=== PATIENT | female | born 2000 | race African-American/Black ===

== ENCOUNTER 2018-03-21 21:58 | Emergency (ER) | payer OTHER ==
[~2018-03-21] VITALS: Ht 162.6 cm; Wt 58.1 kg
[2018-03-21 22:44] LABS: APPEARANCE,URINE SLIGHTLY CLOUDY; BILIRUBIN, URINE NEGATIVE (NEGATIVE); COLOR,URINE RED; GLUCOSE, URINE (UA) NEGATIVE (NEGATIVE); KETONES,URINE 4+ (NEGATIVE); LEUKOCYTE ESTERASE ,URINE 2+ (NEGATIVE); NITRITE,URINE NEGATIVE (NEGATIVE); PH,URINE 5 (4.5-8.0); PROTEIN,URINE 4+ (NEGATIVE); UROBILINOGEN,URINE NORMAL MG/DL (0.0-1.0)
[2018-03-21 23:09] LABS: HEMATOCRIT 29.3 % (37.0-47.0); HEMOGLOBIN 8.8 G/DL (12.0-16.0); MEAN CORPUSCULAR VOLUME 71 FL (80-99); PLATELET COUNT 350 K/UL (150-450); RED BLOOD COUNT 4.15 M/UL (4.20-5.40); RED CELL DISTRIBUTION WIDTH 15.6 % (11.6-14.8); WHITE BLOOD COUNT 12.3 K/UL (4.8-10.8)
[2018-03-21] MEDS ORDERED: cefTRIAXone 1 GM in NS 55 ML IVPB ONE (23:15)
[2018-03-21] MEDS ORDERED: CEPHALEXIN500 MG ORAL (23:43)
[2018-03-21] MEDS ORDERED: NAPROXEN500 M1 ORAL (23:43)
--- NOTE | 2018-03-21 23:44 | Emergency Room Report ---
History of Present Illness General Chief Complaint: Abdominal Pain Source: Patient Present Illness HPI Is a 17-year-old female who has history anemia secondary to heavy menstrual bleeding. She presents with chief complaint of menstrual cramps and bleeding. Also with dysuria frequency that started today. Ibuprofen not helping. No nausea no vomiting. Nothing made it better. Urinating made it worse. Pain is 9 out of 10. She's not taking her iron because it makes her nauseous. Allergies: Coded Allergies: No Known Allergies (Unverified , 03/21/18) Patient History Past Medical History: see triage record, old chart reviewed Past Surgical History: other Pertinent Family History: none Social History: Denies: smoking Last Menstrual Period: today Now: No Immunizations: other Reviewed Nursing Documentation: PMH: Agreed; PSxH: Agreed Nursing Documentation-PMH Hx Cardiac Problems: No - ANEMIA Review of Systems Eye: Denies: eye pain, blurred vision ENT: Denies: ear pain, nose congestion, throat swelling Respiratory: Denies: cough, shortness of breath Cardiovascular: Denies: chest pain, palpitations Gastrointestinal: Denies: abdominal pain, diarrhea, nausea, vomiting Genitourinary: Reports: dysuria, frequency, vag bleed/dc Musculoskeletal: Denies: back pain, joint pain Skin: Denies: rash Neurological: Denies: headache, numbness Endocrine: Denies: increased thirst, increased urine Hematologic/Lymphatic: Denies: easy bruising All Other Systems: negative except mentioned in HPI Physical Exam Vital Signs Date Time Temp Pulse Resp B/P (MAP) Pulse Ox O2 Delivery O2 Flow Rate FiO2 03/21/18 22:07 100.1 82 18 100/62 100 Room Air 100.0 vitals with fever Sp02 EP Interpretation: reviewed, normal General Appearance: well appearing, no apparent distress, alert Head: normocephalic, atraumatic Eyes: bilateral eye PERRL, bilateral eye EOMI ENT: hearing grossly normal, normal pharynx Neck: full range of motion, supple, no meningismus Respiratory: chest non-tender, lungs clear, normal breath sounds Cardiovascular #1: regular rate, rhythm, no murmur Gastrointestinal: normal bowel sounds, non tender, no mass, no organomegaly, no bruit, non-distended Musculoskeletal: back normal, gait/station normal, normal range of motion Psychiatric: mood/affect normal Skin: warm/dry Medical Decision Making Diagnostic Impression: Primary Impression: UTI (urinary tract infection) Qualified Codes: N30.00 - Acute cystitis without hematuria Additional Impressions: Dysfunctional uterine bleeding Anemia Qualified Codes: D50.0 - Iron deficiency anemia secondary to blood loss ( chronic) ER Course Patient with UTI. No evidence of pyelonephritis. She is comfortable. We'll discharge home. Lab Results Impression labs with anemia Last Vital Signs Date Time Temp Pulse Resp B/P (MAP) Pulse Ox O2 Delivery O2 Flow Rate FiO2 03/21/18 22:07 100.1 82 18 100/62 100 Room Air 100.0 Status: improved Disposition: HOME, SELF-CARE Condition: Stable Scripts Naproxen* (NAPROXEN*) 500 Mg Tablet. 500 MG ORAL TWICE A DAY, #30 TAB Prov: DAVID MCGOVERN M.D. 03/21/18 Cephalexin* (KEFLEX*) 500 Mg Capsule 500 MG ORAL TID, #21 CAP Prov: DAVID MCGOVERN M.D. 03/21/18 Referrals: NON PHYSICIAN (PCP) Additional Instructions: Follow-up your doctor in 7 days. Take your iron supplement. Return if worse. Talk to your regarding control pill to regulate your cycle. DAVID MCGOVERN M.D. Mar 21, 2018 23:44
[2018-03-21 23:55] VITALS: BP 102/62
[2018-03-22] VITALS: BP 102/62
== END 2018-03-22 | disposition home or self-care (01) ==
LOC: EMR 22:46
DX: N39.0 Urinary tract infection, site not specified (principal); N93.8 Other specified abnormal uterine and vaginal bleeding; D64.9 Anemia, unspecified
CPT/HCPCS: 36415; 81003; 81025; 85025; 96365; 99284; J0696

== ENCOUNTER → 2018-11-10 | Emergency (ER) | payer OTHER ==
[~2018-11-10] MED LIST: CEPHALEXIN500 MG ORAL; Cephalexin 500mg cap ONE; NAPROXEN500 M1 ORAL
--- NOTE | 2018-11-11 06:39 | Emergency Room Report ---
History of Present Illness General Source: Patient Present Illness HPI This is a 18-year-old female with no past mental history. She presents with chief complaint of possible urinary tract infection. She has some dysuria. No frequency. Unknown hematuria because she is on her menstrual period right now. Similar symptom in the past. No trauma. No discharge. Allergies: Coded Allergies: No Known Allergies (Unverified , 03/21/18) Patient History Past Medical History: see triage record, old chart reviewed Past Surgical History: none Pertinent Family History: none Social History: Denies: smoking Now: No Immunizations: other Reviewed Nursing Documentation: PMH: Agreed; PSxH: Agreed Nursing Documentation-PMH Hx Cardiac Problems: No - ANEMIA Review of Systems Eye: Denies: eye pain, blurred vision ENT: Denies: ear pain, nose congestion, throat swelling Respiratory: Denies: cough, shortness of breath Cardiovascular: Denies: chest pain, palpitations Gastrointestinal: Denies: abdominal pain, diarrhea, nausea, vomiting Genitourinary: Reports: dysuria Musculoskeletal: Denies: back pain, joint pain Skin: Denies: rash Neurological: Denies: headache, numbness Endocrine: Denies: increased thirst, increased urine Hematologic/Lymphatic: Denies: easy bruising All Other Systems: negative except mentioned in HPI Physical Exam vitals normal Sp02 EP Interpretation: reviewed, normal General Appearance: well appearing, no apparent distress, alert Head: normocephalic, atraumatic Eyes: bilateral eye PERRL, bilateral eye EOMI ENT: hearing grossly normal, normal pharynx Neck: full range of motion, supple, no meningismus Respiratory: chest non-tender, lungs clear, normal breath sounds Cardiovascular #1: regular rate, rhythm, no murmur Gastrointestinal: normal bowel sounds, non tender, no mass, no organomegaly, no bruit, non-distended Musculoskeletal: back normal, gait/station normal, normal range of motion Psychiatric: mood/affect normal Skin: warm/dry Medical Decision Making Diagnostic Impression: Primary Impression: UTI (urinary tract infection) Qualified Codes: N30.00 - Acute cystitis without hematuria ER Course Patient with possible urinary tract infection. Urine cultures sent. We'll put on antibiotics. No evidence of a pyelonephritis. Not . Status: improved Disposition: HOME, SELF-CARE Condition: Stable Scripts Cephalexin* (KEFLEX*) 500 Mg Capsule 500 MG ORAL TID, #21 CAP Prov: Estuardo Oliveros MD 11/11/18 Referrals: [facility],REFERRING (PCP) Estuardo Oliveros MD Nov 11, 2018 06:39
== END | disposition home or self-care (01) ==
LOC: EMR 22:53
DX: N39.0 Urinary tract infection, site not specified (principal)
CPT/HCPCS: 99282

== ENCOUNTER 2019-04-18 20:04 | Emergency (ER) | payer OTHER ==
[~2019-04-18] VITALS: Ht 162.6 cm; Wt 59.4 kg
[~2019-04-18 20:04] MED LIST changes: -Cephalexin 500mg cap ONE
[2019-04-18 20:41] VITALS: BP 104/61
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
[2019-04-18] MEDS ORDERED: Acetaminophen 500mg (ES) tab ORAL ONE (21:15)
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
[2019-04-18] MEDS ORDERED: IBUPROFEN600 MG ORAL (22:09)
[2019-04-18] MEDS ORDERED: CYCLOBENZAPRINE10 MG ORAL (22:09)
[2019-04-18 22:21] VITALS: BP 104/61
--- NOTE | 2019-04-18 22:21 | NUR ---
ER Nurse Note: Pt signed waver for radiology. Pt seen, treated, medically cleared for discharge by ERMD. Discharge instuctions and prescriptions given with repeat verbalization by pt. Emphasized to follow up with primay care provider; take whole course of medication. Explained each medication. All orders completed per ERMD orders. Pt a&ox4, VSS, no signs of distress. ID band removed. All questions answered per pt's questions. Pt left with all belongings, left with own transportation.
--- NOTE | 2019-04-19 12:50 | Diagnostic Imaging Report ---
Indication: Back pain Comparison: None Findings: 3 views of the lumbar spine were obtained. No acute fracture or malalignment is identified. Vertebral body heights and disk spaces are well maintained. Posterior elements are unremarkable. Impression: No acute findings.
== END 2019-04-18 22:21 | disposition home or self-care (01) ==
LOC: EMR 20:48
DX: S39.012A Strain of muscle, fascia and tendon of lower back, initial encounter (principal); V43.62XA Car passenger injured in collision with other type car in traffic accident, initial encounter; Y92.410 Unspecified street and highway as the place of occurrence of the external cause
CPT/HCPCS: 72020; 99283

== ENCOUNTER 2019-06-21 15:37 | Emergency (ER) | payer OTHER ==
[~2019-06-21] VITALS: Ht 162.6 cm; Wt 52.2 kg
[~2019-06-21 15:37] MED LIST changes: +CYCLOBENZAPRINE10 MG ORAL; +IBUPROFEN600 MG ORAL
[2019-06-21 15:46] VITALS: BP 115/70
--- NOTE | 2019-06-21 15:56 | NUR ---
ED Nurse Note: PT FROM HOME CAME IN DUE TO VAGINAL SWELLING, PAIN WITH ITCHINESS AND BROWN DISCHARGE. AAO X4, AMBULATORY.
[2019-06-21] MEDS ORDERED: Fluconazole 150mg tab ORAL ONE (16:30)
[2019-06-21] MEDS ORDERED: FLUCONAZOLE100 MG ORAL (16:31)
--- NOTE | 2019-06-21 16:31 | Emergency Room Report ---
History of Present Illness General Chief Complaint: Vaginal Source: Patient Present Illness HPI 18-year-old female presents to the emergency department complaining of 9 out of 10 severity external vaginal itching and burning sensation with soft tissue swelling x4 days. Patient reports her symptoms have improved slightly after applying OTC Monistat for which she has run out on. Patient denies unprotected intercourse she denies swollen tender lymph nodes, vaginal lesions or pelvic pain. Patient denies suspicion of . She reports frequent yeast infections. Patient also is reporting some light brown-colored discharge x1 day. Patient states that she is always had very irregular periods and was at one point on control in an attempt to regulate her periods. Patient states that she is not sexually active with the opposite sex. She denies dysuria, urinary frequency or urgency. Patient denies hematuria. She denies malodor to the discharge. No other aggravating or relieving factors. Allergies: Coded Allergies: No Known Allergies (Unverified , 03/21/18) Patient History Past Medical History: see triage record Past Surgical History: none Pertinent Family History: none Last Menstrual Period: 06/06/19 Now: No Reviewed Nursing Documentation: PMH: Agreed; PSxH: Agreed Nursing Documentation-PMH Past Medical History: No Stated History Hx Cardiac Problems: No - ANEMIA Review of Systems All Other Systems: negative except mentioned in HPI Physical Exam Vital Signs Date Time Temp Pulse Resp B/P (MAP) Pulse Ox O2 Delivery O2 Flow Rate FiO2 06/21/19 15:46 98.6 60 16 115/70 (85) 100 Room Air Sp02 EP Interpretation: reviewed, normal General Appearance: no apparent distress, alert, GCS 15, non-toxic Head: normocephalic, atraumatic Eyes: bilateral eye normal inspection, bilateral eye PERRL ENT: hearing grossly normal, normal voice Neck: full range of motion Respiratory: lungs clear, normal breath sounds, speaking full sentences Cardiovascular #1: regular rate, rhythm Gastrointestinal: normal bowel sounds, non tender, soft Genitourinary: normal inspection, no CVA tenderness, adnexa normal, other - the external labia are erythematous and mild swelling, no warmth. Pt. has superficial tenderness. no obvious d/c noted. no LAD. no obvious lesions, deferred - pt. a virgin, modified exam to the superficial structures and vaginal orifice without use of the speculum. Musculoskeletal: back normal, gait/station normal, normal range of motion, non- tender Neurologic: alert, oriented x3, responsive, motor strength/tone normal, sensory intact, speech normal, grossly normal Psychiatric: judgement/insight normal Skin: rash - irritated macerated appearing erythematous rash to the bilateral vaginal labia. no blisters, vessicles, or lesions noted. no obvious D/c Noted. Lymphatic: no adenopathy Medical Decision Making PA Attestation Dr. Ruiz is my supervising Physician whom patient management has been discussed with. Diagnostic Impression: Primary Impression: Vaginitis and vulvovaginitis ER Course 18-year-old female presents to the emergency department complaining of 9 out of 10 severity external vaginal itching and burning sensation with soft tissue swelling x4 days. Patient reports her symptoms have improved slightly after applying OTC Monistat for which she has run out on. Patient denies unprotected intercourse she denies swollen tender lymph nodes, vaginal lesions or pelvic pain. Patient denies suspicion of . Pt. denies fevers or chills, blisters or skin abnormalities. She reports frequent yeast infections. Patient also is reporting some light brown-colored discharge x1 day. Patient states that she is always had very irregular periods and was at one point on control in an attempt to regulate her periods. Patient states that she is not sexually active with the opposite sex. She denies dysuria, urinary frequency or urgency. Patient denies hematuria. She denies malodor to the discharge. No other aggravating or relieving factors. Ddx considered but are not limited to UTi , Pyelo, STI, Stone, Cystitis, vaginal laceration, vaginitis. Vital signs: are WNL, pt. is afebrile H& PE are most consistent with: Vaginitis- yeast ORDERS: - Wet [place] : Pt. virgin- deferred.-collaborative decision. ED INTERVENTIONS: -Diflucan PO DISCHARGE: At this time pt. is stable for d/c to home. Will provide printed patient care instructions, and any necessary prescriptions. Care plan and follow up instructions have been discussed with the patient prior to discharge. discussed with the patient prior to discharge. Last Vital Signs Date Time Temp Pulse Resp B/P (MAP) Pulse Ox O2 Delivery O2 Flow Rate FiO2 06/21/19 15:46 98.6 60 16 115/70 100 Room Air Disposition: HOME, SELF-CARE Condition: Stable Scripts Fluconazole (FLUCONAZOLE) 100 Mg Tablet 100 MG ORAL DAILY for 2 Days, #2 TAB 0 Refills Prov: Chula Schwartz 06/21/19 Patient Instructions: Vaginitis, [id number] Additional Instructions: Take medications as directed. Follow up with a PCP or [facility] within 3 days, even if your symptoms have resolved. Return sooner to ED if new symptoms occur, or current symptoms become worse. - Please note that this Emergency Department Report was dictated using [employer] powerplant mechanic helper technology software, occasionally this can lead to erroneous entry secondary to interpretation by the dictation equipment. Chula Schwartz Jun 21, 2019 16:31
[2019-06-21 16:40] VITALS: BP 125/76
--- NOTE | 2019-06-21 16:40 | NUR ---
ER DISCHARGE NOTE: Patient is cleared to be discharged per PA, pt is aox4, on room air, with stable vital signs. pt was given dc and prescription instructions, pt was able to verbalize understanding, pt id band removed. pt is able to ambulate with steady gait. pt took all belongings and left with her family member.
== END 2019-06-21 16:40 | disposition home or self-care (01) ==
LOC: EMR 16:05
DX: N76.0 Acute vaginitis (principal)
CPT/HCPCS: 99282

== ENCOUNTER 2019-10-12 07:15 | Emergency (ER) | payer OTHER ==
[~2019-10-12] VITALS: Ht 162.6 cm; Wt 54.4 kg
[~2019-10-12 07:15] MED LIST changes: +FLUCONAZOLE100 MG ORAL
[2019-10-12] MEDS ORDERED: Ketorolac 60mg Inj IM ONE (07:45)
--- NOTE | 2019-10-12 07:49 | Emergency Room Report ---
History of Present Illness General Chief Complaint: Headache Source: Patient Present Illness HPI Patient presents with complaints of headache that is been ongoing for the past 7 days Patient reports that she has history of migraine headaches Denies any recent travel denies any trauma Denies any focal weakness Patient significant other reports that the patient was sleeping from 6 PM last night Till 6 in the morning today Patient denies any chest pain or shortness of breath denies any fevers denies any neck pain she does report some photophobia with light sensitivity Consistent with her migraines Patient reports that she has not taken any medications over the past 7 days She states that her primary physician prescribed 800 mg Motrin However had crossed it out and therefore the pharmacy was not able to fill the prescription Significant other reports also that the patient had shrimp yesterday and this seems to have worsened her symptoms she has sensitivity to this food Allergies: Coded Allergies: No Known Allergies (Unverified , 03/21/18) Patient History Past Medical History: see triage record Reviewed Nursing Documentation: PMH: Agreed; PSxH: Agreed Nursing Documentation-PMH Hx Cardiac Problems: No - ANEMIA, MIGRAINE Review of Systems All Other Systems: negative except mentioned in HPI Physical Exam Vital Signs Date Time Temp Pulse Resp B/P (MAP) Pulse Ox O2 Delivery O2 Flow Rate FiO2 10/12/19 07:17 98.2 73 18 100/59 (73) 99 Room Air Sp02 EP Interpretation: reviewed, normal General Appearance: well appearing, no apparent distress Head: normocephalic, atraumatic Eyes: bilateral eye PERRL, bilateral eye EOMI ENT: hearing grossly normal, normal pharynx, TMs + canals normal, uvula midline Neck: full range of motion, supple, no meningismus, no bony tend Respiratory: lungs clear, normal breath sounds, no rhonchi, no respiratory distress, no retraction, no accessory muscle use Cardiovascular #1: normal peripheral pulses, regular rate, rhythm, no edema, no gallop, no JVD, no murmur Gastrointestinal: normal bowel sounds, non tender, soft, no mass, no organomegaly, non-distended, no guarding, no hernia, no pulsatile mass, no rebound Genitourinary: no CVA tenderness Musculoskeletal: normal inspection Neurologic: motor strength/tone normal, director of leadership development III-XII nml as tested, oriented x3 , sensory intact, responsive Psychiatric: mood/affect normal Skin: no rash, pallor Lymphatic: normal inspection, no adenopathy Medical Decision Making Diagnostic Impression: Primary Impression: Headache ER Course Multiple differentials including but not limited to neurological, neurosurgical process such things as infectious or anemia considered, patient had blood work obtained Anemia appears improved from previous Patient has acute intervention in the ER at this time stable for close outpatient follow-up Labs Test 10/12/19 08:00 White Blood Count 5.4 K/UL (4.8-10.8) Red Blood Count 4.30 M/UL (4.20-5.40) Hemoglobin 10.7 G/DL (12.0-16.0) Hematocrit 34.2 % (37.0-47.0) Mean Corpuscular Volume 79 FL (80-99) Mean Corpuscular Hemoglobin 24.8 PG (27.0-31.0) Mean Corpuscular Hemoglobin Concent 31.3 G/DL (32.0-36.0) Red Cell Distribution Width 15.1 % (11.6-14.8) Platelet Count 345 K/UL (150-450) Mean Platelet Volume 6.7 FL (6.5-10.1) Neutrophils (%) (Auto) 64.3 % (45.0-75.0) Lymphocytes (%) (Auto) 23.0 % (20.0-45.0) Monocytes (%) (Auto) 9.2 % (1.0-10.0) Eosinophils (%) (Auto) 2.5 % (0.0-3.0) Basophils (%) (Auto) 1.0 % (0.0-2.0) Urine HCG, Qualitative Negative (NEGATIVE) Sodium Level 142 MMOL/L (136-145) Potassium Level 4.0 MMOL/L (3.5-5.1) Chloride Level 107 MMOL/L (98-107) Carbon Dioxide Level 28 MMOL/L (21-32) Anion Gap 7 mmol/L (5-15) Blood Urea Nitrogen 9 mg/dL (7-18) Creatinine 0.7 MG/DL (0.55-1.30) Estimat Glomerular Filtration Rate > 60 mL/min (>60) Glucose Level 97 MG/DL (74-106) Calcium Level 9.1 MG/DL (8.5-10.1) Last Vital Signs Date Time Temp Pulse Resp B/P (MAP) Pulse Ox O2 Delivery O2 Flow Rate FiO2 10/12/19 07:17 98.2 73 18 100/59 (73) 99 Room Air Status: improved Disposition: HOME, SELF-CARE Condition: Improved Scripts Sumatriptan Succinate* (IMITREX*) 50 Mg Tablet 50 MG ORAL DAILY PRN MIGRAINE, #10 TAB Prov: Jose A Baer DO 10/12/19 Additional Instructions: Patient is provided with the discharge instructions notified to follow up with primary doctor in the next 2-3 days otherwise return to the er with any worsening symptoms. Please note that this report is being documented using [employer] technology. This can lead to erroneous entry secondary to incorrect interpretation by the dictating instrument. Jose A Baer DO Oct 12, 2019 07:48
[2019-10-12 08:17] VITALS: BP 100/59
[2019-10-12 08:39] LABS: EOSINOPHILS % (AUTO) 2.5 % (0.0-3.0); HEMATOCRIT 34.2 % (37.0-47.0); HEMOGLOBIN 10.7 G/DL (12.0-16.0); MEAN CORPUSCULAR VOLUME 79 FL (80-99); MONOCYTES % (AUTO) 9.2 % (1.0-10.0); NEUTROPHILS % (AUTO) 64.3 % (45.0-75.0); PLATELET COUNT 345 K/UL (150-450); RED CELL DISTRIBUTION WIDTH 15.1 % (11.6-14.8); WHITE BLOOD COUNT 5.4 K/UL (4.8-10.8)
[2019-10-12 08:53] LABS: ANION GAP 7 mmol/L (5-15); BLOOD UREA NITROGEN 9 mg/dL (7-18); CALCIUM 9.1 MG/DL (8.5-10.1); CARBON DIOXIDE 28 MMOL/L (21-32); CHLORIDE 107 MMOL/L (98-107); CREATININE 0.7 MG/DL (0.55-1.30); SODIUM 142 MMOL/L (136-145)
[2019-10-12] MEDS ORDERED: IMITREX50 MG ORAL (09:08)
[2019-10-12 09:47] VITALS: BP 100/59
[2019-10-12] MEDS ORDERED: Hydrogen Peroxide 473ml Bottle TOPIC ONE (10:02)
== END 2019-10-12 09:48 | disposition home or self-care (01) ==
LOC: EMR 08:40
DX: R51 Headache (principal)
CPT/HCPCS: 36415; 80048; 81025; 85025; 96372; Z7502; 99283

== ENCOUNTER 2020-08-22 11:25 | Emergency (ER) | payer OTHER ==
[~2020-08-22] VITALS: Ht 162.6 cm; Wt 61.7 kg
[~2020-08-22 11:25] MED LIST changes: +IMITREX50 MG ORAL
[2020-08-22 11:32] VITALS: BP 107/55
--- NOTE | 2020-08-22 11:32 | NUR ---
ED Nurse Note: Pt walked in to ED from home c/o loss of sense of smell x4 days. Denies SOB/ fever/ chills. Pt also c/o a painful lump to her vaginal area since 08/10/20. AAOx4, verbally responsive, on room air.
--- NOTE | 2020-08-22 11:47 | Emergency Room Report ---
History of Present Illness General Chief Complaint: General Complaint Source: Patient Present Illness HPI Patient is a 18-year-old female presents for increased loss of smell. She states she also wants to be checked for lump to her vaginal area. This had been present for several days. She reports the lump having decreased in size over time and had some small amount of drainage. She had sick contacts at home who had also had symptoms consistent with possible coronavirus infection. She denies any recent fevers. Denies any shortness of breath. Denies any new leg pain or swelling. Allergies: Coded Allergies: No Known Allergies (Unverified , 03/21/18) COVID-19 Screening Contact w/high risk pt: No Experienced COVID-19 symptoms?: Yes COVID-19 Testing performed WILDERNESS GUIDE: No Patient History Past Medical History: see triage record Last Menstrual Period: 07/23/20 Reviewed Nursing Documentation: PMH: Agreed; PSxH: Agreed Nursing Documentation-PMH Hx Cardiac Problems: No - ANEMIA, MIGRAINE Review of Systems All Other Systems: negative except mentioned in HPI Physical Exam Vital Signs Date Time Temp Pulse Resp B/P (MAP) Pulse Ox O2 Delivery O2 Flow Rate FiO2 08/22/20 11:26 98.8 89 19 107/55 (72) 98 08/22/20 11:32 Room Air Sp02 EP Interpretation: reviewed, normal General Appearance: normal inspection, well appearing, no apparent distress, a lert, GCS 15, non-toxic Head: normocephalic, atraumatic ENT: normal ENT inspection, hearing grossly normal, normal voice Neck: normal inspection, full range of motion, supple, no bony tend Respiratory: normal inspection, lungs clear, normal breath sounds, no respiratory distress, no retraction, no wheezing Cardiovascular #1: regular rate, rhythm, no edema Gastrointestinal: normal inspection, normal bowel sounds, non tender, soft, no guarding, no hernia Genitourinary: no CVA tenderness, other - Left sided labial swelling with approximately 1cm cystic lesion consistent with a Bartholin gland cyst minimal erythema Musculoskeletal: normal inspection, back normal, normal range of motion Neurologic: alert, responsive, speech normal, normal inspection Psychiatric: normal inspection, judgement/insight normal, mood/affect normal Medical Decision Making Diagnostic Impression: Primary Impression: Suspected 2019 novel coronavirus infection Additional Impression: Bartholin cyst ER Course Patient presented for anosmia. Differential diagnosis include was not limited to allergic rhinitis, coronavirus infection, pneumonia among others. Patient reports having some symptomatology consistent with coronavirus infection. Additionally she presents with a Bartholin's gland cyst. I offered the patient incision and drainage due to presumed infection and she indicated understanding of the risk benefits and alternatives and declined procedure. She states she will follow-up with her [employer]. Patient states this is also already draining somewhat. Patient was advised to return if she began having any worsening symptoms. She advised to continue to self quarantine. She is advised to return if she had increased shortness of breath or any other concerns. This medical record is generated with [employer] advanced registered nurse software. There may be some tra nscription discrepancies related to use of this software Last Vital Signs Date Time Temp Pulse Resp B/P (MAP) Pulse Ox O2 Delivery O2 Flow Rate FiO2 08/22/20 11:32 98.8 89 19 107/55 98 Room Air Status: improved Disposition: HOME, SELF-CARE Condition: Stable Scripts Cephalexin* (KEFLEX*) 500 Mg Capsule 500 MG ORAL EVERY 6 HOURS, #28 CAP Prov: Tim Mcgraw MD 08/22/20 Tim Mcgraw MD Aug 22, 2020 11:47
[2020-08-22] MEDS ORDERED: Lidocaine 1%/ 10mg/ml/EPI 0.01mg/ml 20ml INJ ONE (12:30)
[2020-08-22] MEDS ORDERED: CEPHALEXIN500 MG ORAL (12:37)
[2020-08-22 12:45] VITALS: BP 107/55
--- NOTE | 2020-08-22 12:45 | NUR ---
ED Nurse Note: Pt cleared by ERMD for discharge. DC instructions/prescription was given and explained to pt and verbalized understanding of teachings. All medical deviecs such as ID band removed. Pt is AAO x4, ambulatory and left with all personal belongings.
== END 2020-08-22 12:45 | disposition home or self-care (01) ==
LOC: EMR 12:38
DX: R43.0 Anosmia (principal); N89.9 Noninflammatory disorder of vagina, unspecified
CPT/HCPCS: 99282